=== PATIENT | female | born 1965 | race African-American/Black ===

== ENCOUNTER 2016-09-12 20:09 | Inpatient (IN) ==
[2016-09-12] MEDS ORDERED: SODIUM CHLORIDE 0.9% 1,000 ML IV STA (20:47)
[2016-09-12] MEDS ORDERED: ONDANSETRON 4 MG/2 ML VIAL IV STA (20:47)
[2016-09-12] MEDS ORDERED: HYDROmorphone 2 MG/1 ML VIAL IV STA (20:47)
[2016-09-12] MEDS ORDERED: HYDROmorphone 2 MG/1 ML VIAL ONE (21:12)
[2016-09-12] MEDS ORDERED: ONDANSETRON 4 MG/2 ML VIAL ONE (21:12)
[2016-09-12 21:37] LABS: Basophils % 0.2 % (0.0-0.8); Eosinophils # 0.1 10*3/uL (0.0-0.87); Eosinophils % 1.2 % (0.00-10.9); Hematocrit 34.6 VOL% (35.7-47.0); Hemoglobin 11.1 GM/DL (12.0-16.0); Immature Granulocytes % 0.4 %; Immature Granulocytes Absolute 0.03 #; Lymphocytes # 2.2 10*3/uL (1.4-4.0); Lymphocytes % 27.2 % (21.3-54.2); Mean Corpuscular HGB Conc 32.1 GM/DL (32-36); Mean Corpuscular Hemoglobin 28 PG (27-34); Mean Corpuscular Volume 86.9 FL (87-102); Mean Platelet Volume 11.6 FL (9.6-12.0); Monocytes # 0.6 10*3/uL (0.11-0.8); Neutrophils # 5.1 10*3/uL (1.4-7.4); Platelet Count 355 T/CUMM (130-400); Red Blood Count 3.98 MC/CUMM (3.8-5.5); Red Cell Distribution Width 12.7 % (9.3-17.3)
[2016-09-12 21:48] LABS: PT Patient Result 10.5 SECS
[2016-09-12 21:56] LABS: Alanine Aminotransferase 24 U/L (13-56); Albumin 2.9 G/DL (3.4-5.0); Alkaline Phosphatase 126 U/L (45-117); Aspartate Amino Transferase 29 U/L (0-37); Bilirubin,Total < 0.39 MG/DL (0.2-1.0); Blood Urea Nitrogen 20 MG/DL (7-18); Calcium 8.8 MG/DL (8.5-10.1); Glucose 276 MG/DL (74-106); Osmolality,Calculated 285.8 MOS/KG (273-304); Potassium 3.7 MMOL/L (3.5-5.1); Sodium 137 MMOL/L (136-145); Total Protein 7.1 G/DL (6.4-8.3)
--- NOTE | 2016-09-12 22:47 | Ultrasound Report ---
Exam: Right lower extremity venous Doppler/duplex ultrasound Comparison: None Clinical history: Right leg pain and swelling Technique: Duplex scan of the right lower extremity veins using th B- mode/grayscale imaging and Dopplers spectral analysis and color flow. Findings: There is normal compression and augmentation of the right common femoral, superficial femoral and popliteal veins. The proximal right greater saphenous veins appear to be patent. Major venous structures of the right lower extremity demonstrating normal course and caliber with normal color-flow study and spectral analysis. Enlarged right femoral nodes are noted with the largest node measuring 20 mm in length. 83 x 62 x 34 mm soft tissue abnormality in the medial mid to distal right thigh location. Impression: No evidence to suggest deep venous thrombosis within the right lower extremity. 83 x 62 x 34 mm soft tissue abnormality in the medial right thigh location which can be seen with hematoma, mass, etc. No blood flow within this finding. Additional enlarged right groin nodes. Follow-up recommended as discussed with Dr. Ghotra at 10:40 PM on 09/12/2016. Critical test results Ultrasound images were captured and stored. PROCEDURE INTERPRETED AT [facility] [place] DEPARTMENT OF RADIOLOGY Final Report Signed by: Dr. Camila Ibrahim
--- NOTE | 2016-09-12 23:50 | Emergency Department Note ---
Leanna Schultz Emily, am scribing for, and in the presence of, Mehreen Ghotra DO 20:57. IBrandin Catherine, DO, personally performed the services described in this documentation, ascribed by Ava Ram in my presence, and it is both accurate and complete 350 . Arrival - Arrival Chief Complaint: Extremity Problem ED Nursing Triage Note: C/O RLE pain/swelling. Onset 2 weeks ago, but worsening more on Wednesday. Pt was seen at [facility] and was sent for RLE ultrasound to rule out DVT. +significant swelling to right leg when compared to the right. +pedal pulses equal and strong. Mode of Arrival: Stretcher Limitations: No Limitations Source: Patient Time Seen by Provider: 09/12/16 20:24 - History of Present Illness HPI Narrative: Pt is a 51 y/o female who was transferred from [facility] for further evaluation of possible DVT to right leg. Pt notes having right inner thigh pain and swelling for 2 weeks, waxing and waning. Pt states she was seen and only given pain medication, but pain and swelling returned after a few days of no pain. She states Wednesday, September 01, 2016, she had cramp in inner thigh that had it checked immediately in ED due to it being constant. From there, she followed up with PCP and was given more pain medication and a Lantix pin. Pt is experiencing pain starting at inner thigh radiating to knee and then foot with swelling throughout. 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 Pt denies smoking, ETOH or drug use. PMHX of cholecystectomy, 1x , NIDDM, IDDM. Onset (ago): day(s) Consistency: constant Severity: mild, moderate Severity scale (1-10): 4 Quality: aching Date of Last Menstrual Period: Hysterectomy Allergies/Adverse Reactions: Allergies Allergy/AdvReac Type Severity Reaction Status Date / Time No Known Allergies Allergy Verified 09/12/16 20:25 Home Medications: Home Medications Medication Instructions Recorded Confirmed Type Insulin Glargine,Hum.rec.anlog 10 unit SUBCUT BEDTIME 09/12/16 09/12/16 History [Lantus SoloStar] Lisinopril [Zestril] 20 mg PO DAILY 09/12/16 09/12/16 History Review of System - Review of System 12 point system: reviewed and no additional remarkable complaints except as stated - Review of System Constitutional: Absent: fever, weakness Respiratory: Absent: respiratory distress Cardiovascular: Absent: chest pain, syncope Gastrointestinal: Absent: abdominal pain Musculoskeletal: Present: leg pain (right leg with swelling). Absent: arm pain , back pain, neck pain Skin: Absent: rash Neurological: Absent: headache Psychiatric: Absent: anxiety Medical,Surgical,& Family Hx - Medical History Cardio: History of: Hypertension - Surgical History Surgical History: noncontributory Abdominal Surgeries: Surgical HX of: Cholecystectomy Reproductive Surgeries: Surgical HX of;: Section (x1) - Family History Family History: noncontributory - Social History Smoking Status: Never smoker Frequency of Alcohol Use: None (never) Type of Drug Use: None (never) Marital Status: Single Lives With:: Alone Functional capacity: independent ambulation Exam Vital Signs: Vital Signs Temperature 98.4 F 09/12/16 20:09 Pulse Rate 69 09/12/16 22:21 Respiratory Rate 20 09/12/16 22:21 Blood Pressure 149/109 09/12/16 22:21 O2 Sat by Pulse Oximetry 100 09/12/16 22:21 - General General appearance: alert, in no apparent distress - Head Head exam: Present: atraumatic, normocephalic - Eye Eye exam: Present: PERRL, EOMI - ENT ENT exam: Present: mucous membranes moist. Absent: mucous membranes dry - Neck Neck exam: Present: full ROM. Absent: tenderness - Chest Chest inspection: Present: symmetric chest wall rise. Absent: tenderness - Respiratory Respiratory exam: Present: normal lung sounds bilaterally. Absent: respiratory distress - Cardiovascular Cardiovascular exam: Present: regular rate, normal rhythm, normal heart sounds - Abdominal Exam Abdominal exam: Present: soft, normal bowel sounds. Absent: distention, tenderness, guarding, rebound - Extremities Exam Extremities exam: Present: full ROM, tenderness (erythema throughout RLE starting at inner thigh, but entirety of rt leg has edema; distal pulse is good ; Que's sign positive), pedal edema (+1 pitting) - Back Exam Back exam: Present: normal inspection, full ROM - Neurological Exam Neurological exam: Present: alert, oriented X3, CN II-XII intact. Absent: motor sensory deficit - Psychiatric Psychiatric exam: Present: normal affect, normal mood - Skin Skin exam: Present: warm, dry Course Course Narrative: This is a 51-year-old female she was transferred from another facility for evaluation of pain in her right medial leg and foot. The patient reported this and her down because he thought she might have a blood clot. Ana Cristina reports to me no injury she did have a fall but that was back in February. She states that she has had progressive pain in the upper leg that radiates down into her foot and this is been ongoing for about the last 4 weeks. She did go to the ER up there about 2 weeks ago was placed on pain medicine and did see her regular doctor in follow-up. She stated that they are still treating her for a strain type injury. She reports her regular physician did switch her glucose medications to insulin. She can walk on the leg states it is painful. Her biggest complaint is that she's not sleeping well at night because she says the pain prevents her from resting. She's had no fever no chills or chest pain no abdominal pain no syncope no headaches. Physical assessment patient's awake alert vital signs are stable she's afebrile HEENT exam is normal neck is supple heart is regular rate and rhythm lungs are clear and the anterior posterior levi abdomen is rounded and soft without tenderness rebound or guarding or masses. Her extremities are intact 4 evaluation of the right leg she has tenderness to the right inner thigh region I was unable to palpate an actual mass. In comparison to the left leg the right leg in its entirety appears to be more swollen. She has about a +1 pitting edema to the lower leg distal pulses are good but she has pain with palpation along the leg. Treatment included lab work she is a little bit higher and a glucose of 276. I did do venous Doppler study of the leg which fails to show any blood clot however there was a large soft tissue either mass or hematoma in the right medial thigh region. I have visited with the patient will need to place her in the hospital at least overnight to obtain more imaging on this region. She is to grimace with this treatment. Hospitalist service has been contacted and they will be admitting the patient. - Consultations Consultation #1: Dr. Yeh will admit the patient Time: 23:49 Results - Labs CBC & BMP: 09/12/16 20:59 09/12/16 20:59 Lab Results: I have reviewed the patients labs Labs: Laboratory Tests 09/12/16 09/12/16 20:59 20:59 Hgb 11.1 L Hct 34.6 L MCV 86.9 L BUN 20 H Creatinine 1.60 H Glucose 276 H Alkaline Phosphatase 126 H Albumin 2.9 L Globulin 4.2 H Albumin/Globulin Ratio 0.6 L - Diagnostic Findings Procedure: Ultrasound: report reviewed by me (No evidence to suggest DVT within the right lower extremity. 83 x 62 x 34 mm soft tissue abnormality in the medial right thigh location which can be seen with hematoma, mass, etc. No blood flow within this finding. Additional enlarged right groin nodes. Follow up recommended as discussed with Dr. Ghotra at 10:40 pm on 2016.) Disposition Clinical Impression: soft tissue mass right lower extremity, Hyperglycemia due to type 1 diabetes mellitus Case discussed with: patient Disposition: Still a Patient Condition: Stable Time of Disposition: 23:50
[2016-09-13 02:03] LABS: Apearance,Urine CLEAR (Clear); Bilirubin,Urine Negative (Negative); Blood, Urine Negative (Negative); Glucose,Urine (UA) >=500 mg/dL (Negative); Hyaline Casts,Urine 1 /LPF (0-3); Ketones,Urine Negative (Negative); Nitrite,Urine Negative (Negative); Protein,Urine 30 MG/DL; RBC,Urine <1 /HPF (0-4); Squamous Epithelial Cell,Urine Occasional /HPF (0-10); Urine Color Yellow (Yellow); Urine Specific Gravity 1.018 (1.001-1.035); Urine Urobilinogen < 2.0 EU/DL (0.2-1.0); WBC,Urine 1 /HPF (0-6)
[2016-09-13] MEDS ORDERED: ZALEPLON 5 MG CAPSULE PO PRN (03:47)
[2016-09-13] MEDS ORDERED: DEXTROSE 50% 25 GM/50 ML VIAL IV PRN (03:47)
[2016-09-13] MEDS ORDERED: GLUCAGON 1 MG VIAL IM PRN (03:47)
--- NOTE | 2016-09-13 04:05 | Hospitalist History & Physical ---
Assessment and Plan (1) Cellulitis of right lower extremity Status: Acute Assessment and plan: Patient with the right lower extremities edema although has no fever or leukocytosis she has tenderness all lower extremities I will start with a treating with the antibiotics. If she is not improving with this and has persistent swelling and symptoms may need further evaluation probably with the abdominal CT to make sure there is no venous occlusion at a higher level. Patient has mild renal insufficiency and got contrast tonight . I will avoid another dose of contrast tonight. Will also start on pain medications Current Visit: Yes (2) Diabetes mellitus Status: Acute Assessment and plan: Diabetic diet and monitor blood sugar with the as needed insulin. I will start her I will start on her home dose of Lantus insulin. Current Visit: Yes (3) Anemia Status: Acute Assessment and plan: I will follow-up with a repeat lab Current Visit: Yes (4) Abnormal renal function Status: Acute Assessment and plan: No old labs to compare with I will start her IV fluid and repeat labs ordered Current Visit: Yes History of Present Illness Chief complaint: right lower extremity pain History of present illness: Ms. Joshi is a 51 year old female with history of hypertension and diabetes mellitus presented from [facility] for further eval evaluation of right lower extremities swelling and pain. According to patient she had this swelling in her right lower extremities for about 2 weeks. With the pain. It started in the upper medial thigh not to extend all the way to the leg she was seen by the her provider in the clinic and give some analgesic which did not relieve the pain it progressively worsened she was seen at the [facility] for that today and transferred here for evaluation for possible DVT. Patient has no history of fall or trauma recently no history of fever. In the ER she had venous Dopplers which were negative for the DVT but suspected possible mass versus hematoma in the thigh. She underwent CT angiography of the lateral right lower extremities and noted no evidence of vascular disease or vascular occlusion. There was diffuse right thigh calf and distal right lower extremities soft tissue swelling edema and subcutaneous fat fat stranding suggestive of cellulitis. I was consulted for admission patient to hospitalist service Home Medications Medication Instructions Recorded Confirmed Type Insulin Glargine,Hum.rec.anlog 10 unit SUBCUT BEDTIME 09/12/16 09/12/16 History [Lantus SoloStar] Lisinopril [Zestril] 20 mg PO DAILY 09/12/16 09/12/16 History Allergies Allergy/AdvReac Type Severity Reaction Status Date / Time No Known Allergies Allergy Verified 09/12/16 20:25 Medical,Surgical,& Family Hx - Medical History Cardio: History of: Hypertension Endocrine: History of: Diabetes Mellitus (NIDDM) - Surgical History Abdominal Surgeries: Surgical HX of: Cholecystectomy Reproductive Surgeries: Surgical HX of;: Section (x1) - Social History Smoking Status: Never smoker Frequency of Alcohol Use: None (never) Type of Drug Use: None (never) - Constitutional Constitutional: Absent: chills, fever(s) - Respiratory Respiratory: Absent: cough, dyspnea, wheezing - Gastrointestinal Gastrointestinal: Absent: constipation, diarrhea, nausea, vomiting - Genitourinary Genitourinary: Present: urinary frequency. Absent: dysuria, flank pain - Musculoskeletal Musculoskeletal: Present: as per HPI - Neurological Neurological: Absent: confusion, convulsions, dizziness, headache(s), syncope, tremor(s) Exam - Constitutional Vitals: Period Temp Pulse Resp BP Sys/Oropeza Pulse Ox Last 24 Hr 98.4 F-98.4 F 69-76 16-20 148-155/90-109 98-100 General appearance: mild distress (Due to pain in lower extremity) - Head Head exam: Present: normal inspection, normocephalic, atraumatic - Eye Eye exam: Present: EOMI Pupils: Present: ANAYELI, normal accommodation - ENT ENT exam: Present: normal exam, normal oropharynx - Respiratory Respiratory exam: Present: clear to auscultation bilaterally (Equal air entry bilaterally). Absent: accessory muscle use, rales, rhonchi - Cardiovascular Cardiovascular exam: Present: regular rate and rhythm. Absent: tachycardia - GI/Abdominal GI/Abdominal exam: Present: normal bowel sounds, soft. Absent: distended, tenderness - Neurological Exam Neurological exam: Present: alert, oriented X3 Results - Labs CBC & BMP: 09/12/16 20:59 09/12/16 20:59 Lab Results: I have reviewed the past 24 hour labs
[2016-09-13] MEDS: SODIUM CHLORIDE 0.9% 1,000 ML IV SCH ×3 (05:19→23:51)
[2016-09-13 07:36] LABS: Basophils % 0.1 % (0.0-0.8); Eosinophils % 0.4 % (0.00-10.9); Hematocrit 32.4 VOL% (35.7-47.0); Hemoglobin 10.1 GM/DL (12.0-16.0); Immature Granulocytes % 0.6 %; Immature Granulocytes Absolute 0.04 #; Lymphocytes # 1.2 10*3/uL (1.4-4.0); Lymphocytes % 17.7 % (21.3-54.2); Mean Corpuscular HGB Conc 31.2 GM/DL (32-36); Mean Corpuscular Hemoglobin 27 PG (27-34); Mean Platelet Volume 11.6 FL (9.6-12.0); Monocytes # 0.6 10*3/uL (0.11-0.8); Monocytes % 8.3 % (1.7-12.7); Neutrophils # 5.1 10*3/uL (1.4-7.4); Neutrophils % 72.9 % (38.7-73.9); Platelet Count 312 T/CUMM (130-400); Red Blood Count 3.68 MC/CUMM (3.8-5.5); Red Cell Distribution Width 12.8 % (9.3-17.3)
[2016-09-13 08:02] LABS: Albumin 2.4 G/DL (3.4-5.0); Bilirubin,Total 0.5 MG/DL (0.2-1.0); Calcium 8.3 MG/DL (8.5-10.1); Osmolality,Calculated 286.7 MOS/KG (273-304); Potassium 4.4 MMOL/L (3.5-5.1); Total Protein 6.1 G/DL (6.4-8.3)
--- NOTE | 2016-09-13 10:25 | CT Report ---
CT right femur with contrast DLP: 594.2 mGy*cm Technique: Axial CT images of the right leg were obtained during the arterial of contrast injection. Coronal and sagittal 2-D reconstructions were obtained. No 3-D reconstructions were obtained. This exam was not ordered as CTA as initially reported by [facility]. Omnipaque 350, 100 cc. Comparison: Venous ultrasound 09/12/2016 Findings: Recent ultrasound demonstrated a 83 x 62 x 34 mm soft tissue abnormality in the medial mid to distal right thigh location. This finding cannot be from the medial musculature in the right thigh location especially the vastus medialis muscle. The finding does not appear to be hyperdense relationship to the adjacent musculature. There is blood flow noted in this location. Diffuse soft tissue fluid and soft tissue stranding noted. Enlarged right femoral nodes with the largest measuring 20 mm in length. Arterial calcifications are noted with no hemodynamically significant stenosis. 3 vessel runoff noted to the foot. Degenerative changes are noted with no fracture or bone destruction. Benign linear ossific finding extending from the right iliac bone. Limited evaluation of the pelvis with postoperative findings an apparent hysterectomy. Multiloculated fluid collections are noted which involves approximately 97 x 86 mm area. Impression: No hemodynamically arterial stenosis. Fluid and soft tissue stranding in the right leg which can be seen with edema/cellulitis. Poorly defined abnormality in the medial right thigh which is felt to correspond to the 83 x 62 x 34 mm abnormality noted on ultrasound. This finding cannot be from the musculature and may represent a mass or hematoma with lymphadenopathy. Follow-up is recommended. Apparent hysterectomy with incomplete evaluation of multiloculated fluid collections in the pelvis. CT of the abdomen and pelvis and/or pelvic ultrasound may be helpful for further evaluation of these findings. PROCEDURE INTERPRETED AT [facility] DEPARTMENT OF RADIOLOGY Final Report Signed by: Dr. Camila Ibrahim
[2016-09-13] MEDS: PANTOPRAZOLE 40 MG TABLET PO SCH (10:43)
[2016-09-13] MEDS: ENOXAPARIN 40 MG/0.4 ML SYRINGE SUBCUT SCH (10:43)
[2016-09-13] MEDS: INSULIN LISPRO 100 UNIT/ML SUBCUT SCH ×4 (10:44→21:06)
[2016-09-13] MEDS: INSULIN GLARGINE 100 UNIT/ML SUBCUT SCH (10:44)
[2016-09-13] MEDS: PIPERACILLIN/TAZOBACTAM 3,375 MG in SODIUM CHLORIDE 0.9% 100 ML IV SCH ×2 (13:28→13:29)
[2016-09-13] MEDS: CEFTAROLINE 600 MG in SODIUM CHLORIDE 0.9% 100 ML IV SCH (16:47)
[2016-09-14] MEDS: CEFTAROLINE 600 MG in SODIUM CHLORIDE 0.9% 100 ML IV SCH ×2 (05:35→21:17)
[2016-09-14 07:06] LABS: Basophils % 0.3 % (0.0-0.8); Eosinophils # 0.1 10*3/uL (0.0-0.87); Hematocrit 31.5 VOL% (35.7-47.0); Hemoglobin 9.8 GM/DL (12.0-16.0); Immature Granulocytes % 0.4 %; Immature Granulocytes Absolute 0.03 #; Lymphocytes # 1.5 10*3/uL (1.4-4.0); Lymphocytes % 20.3 % (21.3-54.2); Mean Corpuscular HGB Conc 31.1 GM/DL (32-36); Mean Corpuscular Hemoglobin 28 PG (27-34); Mean Corpuscular Volume 89.5 FL (87-102); Mean Platelet Volume 11.5 FL (9.6-12.0); Monocytes # 0.8 10*3/uL (0.11-0.8); Monocytes % 10.8 % (1.7-12.7); Neutrophils # 4.9 10*3/uL (1.4-7.4); Neutrophils % 67.2 % (38.7-73.9); Platelet Count 318 T/CUMM (130-400); Red Blood Count 3.52 MC/CUMM (3.8-5.5); Red Cell Distribution Width 13.1 % (9.3-17.3); White Blood Count 7.3 T/CUMM (4-12)
[2016-09-14 07:39] LABS: Calcium 8.6 MG/DL (8.5-10.1); Magnesium 2.4 MG/DL (1.8-2.4); Osmolality,Calculated 286.5 MOS/KG (273-304); Potassium 4.3 MMOL/L (3.5-5.1)
[2016-09-14] MEDS: MORPHINE 2 MG/1 ML SYRINGE IV PRN ×2 (07:49→15:03)
[2016-09-14] MEDS: ENOXAPARIN 40 MG/0.4 ML SYRINGE SUBCUT SCH (08:49)
[2016-09-14] MEDS: PANTOPRAZOLE 40 MG TABLET PO SCH (08:49)
[2016-09-14] MEDS: INSULIN GLARGINE 100 UNIT/ML SUBCUT SCH (08:49)
[2016-09-14] MEDS: INSULIN LISPRO 100 UNIT/ML SUBCUT SCH ×4 (08:59→21:40)
[2016-09-14] MEDS ORDERED: VANCOMYCIN INJ 1,000 MG in SODIUM CHLORIDE 0.9% 250 ML IV SCH (11:00)
[2016-09-14] MEDS ORDERED: hydroCHLOROthiazide 12.5 MG CAPSULE PO SCH (12:00)
[2016-09-14] MEDS: SODIUM CHLORIDE 0.9% 1,000 ML IV SCH (13:36)
--- NOTE | 2016-09-14 14:31 | Hospitalist Progress Note ---
Assessment and Plan (1) NARINDER (acute kidney injury) Status: Acute Current Visit: Yes (2) Edema Status: Acute Current Visit: Yes (3) Diabetes mellitus Status: Acute Current Visit: Yes (4) Anemia Status: Acute Current Visit: Yes Hospitalist: Subjective Interval history: No acute events overnight. Blood pressure is elevated, reports that she takes lisinopril at home. Given NARINDER will start hctz instead. FSGs also elevated, increasing Lantus. CT femur with hematoma vs mass in right lower extremity. Will consult surgery for assistance. Patient and daughter report that her leg has been bothering her since last November. Patient also with blood cultures growing both gram positive cocci and gram negative rods. Possible contamination. Continue teflaro. Repeat blood cultures. Exam - Constitutional Vitals: Period Temp Pulse Resp BP Sys/Oropeza Pulse Ox Last 24 Hr 98.5 F-98.8 F 83-90 18-20 156-179/87-107 95-99 General appearance: normal weight - Head Head exam: Present: normocephalic, atraumatic - Eye Eye exam: Present: EOMI Pupils: Present: ANAYELI - ENT ENT exam: Present: normal exam - Neck Neck exam: Present: normal inspection - Respiratory Respiratory exam: Present: clear to auscultation bilaterally. Absent: rhonchi, wheezes - Cardiovascular Cardiovascular exam: Present: regular rate and rhythm - GI/Abdominal GI/Abdominal exam: Present: normal bowel sounds, soft. Absent: tenderness, rebound - Extremities Exam Extremities exam: Present: edema - Back Exam Back exam: Present: normal inspection - Neurological Exam Neurological exam: Present: alert, oriented X3 - Psychiatric Psychiatric exam: Present: normal affect, normal mood - Skin Skin exam: Present: warm, intact Results - Labs CBC & BMP: 09/14/16 06:35 09/14/16 06:35
--- NOTE | 2016-09-14 17:17 | General Surgery Consult Note ---
Assessment and Plan (1) Thigh pain, musculoskeletal Status: Acute Assessment and plan: Right thigh pain. Without evidence of vascular compromise on CT of the right femur with contrast with no hemodynamically significant arterial stenosis. No venous occlusion was identified. At this point the etiology is unclear. We will check creatinine kinase level, lactic acid level, sedimentation rate and CRP. Dr. Dior houston follow with additional assessment and recommendation. Current Visit: Yes Qualifiers: Laterality: right Qualified Code(s): M79.604 - Pain in right leg History of Present Illness Chief complaint: Right thigh pain History of present illness: Ms. Joshi is a 51 year old female with past medical history of hypertension and diabetes mellitus I transferred to [facility] for right thigh pain. She has not been experiencing progressive pain over the past 2 weeks which she describes in the right medial thigh. It there was no precipitating event including trauma or increased activity, she states that she simply felt her muscles get "tight" with continued progression. She has been treated with outpatient and in the emergency facilities for this pain with analgesics which have been minimally effective. She localizes the pain in the medial thigh compartment with associated edema. She has progressively had severe, throbbing pain which has worsened now also such that she is unable to flex and extend the knee or weight-bear which is been an issue for 3-4 days. She paresthesias, numbness, hyperesthesias, fever, chills, other arthralgias or night sweats. No new medications. No recent travel. No relieving symptoms. Home Medications Medication Instructions Recorded Confirmed Type Insulin Glargine,Hum.rec.anlog 10 unit SUBCUT BEDTIME 09/12/16 09/13/16 History [Lantus SoloStar] Lisinopril [Zestril] 20 mg PO DAILY 09/12/16 09/13/16 History Allergies Allergy/AdvReac Type Severity Reaction Status Date / Time Penicillins Allergy Intermediate ITCHING Verified 09/13/16 05:11 Medical,Surgical,& Family Hx - Medical History Cardio: History of: Hypertension Endocrine: History of: Diabetes Mellitus (NIDDM) - Surgical History Abdominal Surgeries: Surgical HX of: Cholecystectomy Reproductive Surgeries: Surgical HX of;: Section (x1) - Social History Smoking Status: Never smoker Frequency of Alcohol Use: None Type of Drug Use: None - Constitutional Constitutional: Absent: anorexia, fatigue, fever(s), malaise, night sweats - Cardiovascular Cardiovascular: Absent: chest pain at rest, chest pain with activity, orthopnea , palpitations - Respiratory Respiratory: Absent: cough, dyspnea on exertion, wheezing - Gastrointestinal Gastrointestinal: Absent: abdominal pain, diarrhea, nausea, vomiting - Genitourinary Genitourinary: Absent: dysuria, hematuria - Musculoskeletal Musculoskeletal: Present: as per HPI - Neurological Neurological: Absent: numbness, paresthesias Hematologic/Lymphatic: Present: other. Absent: easy bruising Exam - Constitutional Vitals: Period Temp Pulse Resp BP Sys/Oropeza Pulse Ox Last 24 Hr 98.5 F-98.7 F 83-90 18-20 162-179/87-107 95-99 General appearance: mild distress, over weight - Head Head exam: Present: normocephalic, atraumatic - Eye Eye exam: Absent: conjunctival injection, scleral icterus - Respiratory Respiratory exam: Present: clear to auscultation bilaterally - Cardiovascular Cardiovascular exam: Present: RRR - GI/Abdominal GI/Abdominal exam: Present: normal bowel sounds, soft. Absent: distended, tenderness - Extremities Exam Extremities exam: Present: other (Right thigh is edematous more localized medially with slight firmness to the medial side with pain out of proportion to range of motion of the hip and/or knee as well as to light touch sensory. Patient is very guarded and difficult to examine from a range of motion standpoint. She can engage her rectus for You it appears, but she has minimal active range of motion including cigarettes significant pain out of proportion with hip abduction, or any flexion and extension of the hip and/or knee. Passively she will not allow me to manipulate this extremity. Distally, sensation is intact in the foot and ankle with motor function intact with dorsiflexion and plantar flexion of the toes and ankle complete and sensory function intact in foot and ankle.). Absent: calf tenderness, edema - Neurological Exam Neurological exam: Present: alert, oriented X3 - Skin Skin exam: Present: normal color, warm Results - Labs CBC & BMP: 09/14/16 06:35 09/14/16 06:35 - Impressions CT scan of the right femur with contrast reviewed: There is a medial lesion approximately 9 x 8 mm of the vastus medialis musculature without ring enhancement. Tendinopathy of the groin ipsilateral region is also noted. Subcu edema. - Diagnostic Findings Procedure: Ultrasound: report reviewed by me, image reviewed by me (Negative duplex Doppler of the right lower extremity for a blood clot. Lymphadenopathy as well as a focal lesion of the medial side of the vastus medialis Shoemaker was noted approximately 8 x 6 x 3 mm.)
--- NOTE | 2016-09-14 19:01 | General Surgery Consult Note ---
Assessment and Plan - Time spent with patient Time spent with patient: Less than 30 minutes (1) Thigh pain, musculoskeletal Status: Acute Assessment and plan: Impression: 1. Right thigh pain and swelling etiology unclear 2. Questionable mass in the muscle on the medial thigh etiology unclear 3. Diabetic adult onset Plan: 1. We will get orthopedics to look at this and review for him to see what they think might be going on. 2. Will get an MRI to see if we get a little better definition of what might be going on the muscular to her. 3. Symptomatic treatment is best that we can do at this time. Current Visit: Yes Qualifiers: Laterality: right Qualified Code(s): M79.604 - Pain in right leg History of Present Illness Chief complaint: Right thigh pain for 3 weeks History of present illness: Ms. Joshi is a 51 year old female -Malaysian who over the last 3 weeks has developed some increasing right thigh pain and she describes some swelling. Etiology of this is unclear. She has a daughter who is apparently a physician in [place] but when she was seen in [place] will do a transferred down here. It is unclear what this process might be but she is extremely tender and having difficulty in functioning due to this discomfort. She apparently had a venous Doppler study that was normal and she had a CT scan of the thigh that again is suggestive of a mass although is difficult for me to really see it and the vasculature is normal. At this point I do not see anything from a general surgical standpoint that there is anything I can do to this area. I cannot say that this area is an abscess cannot even say it is a hematoma. He may have to be concerned about neoplastic process. Will bring in orthopedics for their opinion and look at an MRI to see if we get a better look at what this area might be. Home Medications Medication Instructions Recorded Confirmed Type Insulin Glargine,Hum.rec.anlog 10 unit SUBCUT BEDTIME 09/12/16 09/13/16 History [Lantus SoloStar] Lisinopril [Zestril] 20 mg PO DAILY 09/12/16 09/13/16 History Allergies Allergy/AdvReac Type Severity Reaction Status Date / Time Penicillins Allergy Intermediate ITCHING Verified 09/13/16 05:11 Medical,Surgical,& Family Hx - Medical History Cardio: History of: Hypertension Endocrine: History of: Diabetes Mellitus (NIDDM) - Surgical History Abdominal Surgeries: Surgical HX of: Cholecystectomy Reproductive Surgeries: Surgical HX of;: Section (x1) - Social History Smoking Status: Never smoker Frequency of Alcohol Use: None Type of Drug Use: None 12 point system: reviewed and no additional remarkable complaints except as stated Exam - Constitutional Vitals: Period Temp Pulse Resp BP Sys/Oropeza Pulse Ox Last 24 Hr 98.5 F-98.7 F 83-90 18-20 162-179/87-107 95-99 General appearance: mild distress - Head Head exam: Present: normal inspection - ENT ENT exam: Present: normal exam - Neck Neck exam: Present: normal inspection - Respiratory Respiratory exam: Present: clear to auscultation bilaterally, rales - Cardiovascular Cardiovascular exam: Present: RRR - GI/Abdominal GI/Abdominal exam: Present: normal bowel sounds, soft, other (Hysterectomy scar midline). Absent: hernia, mass, tenderness - Extremities Exam Extremities exam: Present: other (The right lower extremity she is not moving voluntarily at this time. External examination suggest that they thigh is a little bit larger on the right than the left and on palpation she is extremely tender on palpation of the right thigh and there is a fullness there in the medial aspect. Pulses are 3+ dorsalis pedis at this time and there is no lower extremity swelling that I see.) - Back Exam Back exam: Present: normal inspection - Neurological Exam Neurological exam: Present: alert, oriented X3, CN II-XII intact - Skin Skin exam: Present: normal color, warm, dry Results - Labs CBC & BMP: 09/14/16 06:35 09/14/16 06:35 Lab Results: I have reviewed the past 24 hour labs - Diagnostic Findings Procedure: CT: report reviewed by me (Right thigh showing vasculature are normal questionable mass medial thigh), Ultrasound: report reviewed by me ( Venous Dopplers normal)
--- NOTE | 2016-09-14 20:14 | ECHO Report ---
Varsha Joshi Exam Date: 09/14/2016 11:26 Referring Physician: Technologist: Leigha Stack Age: 51 Ht (in): 65 Wt (lb): 222 Gender: F Exam Location: [facility], [place] Echo Indications: hyperglycemia, diabetes, anemia, abn. renal function BP: 162 / 99 HR: 83 Rhythm: Atrial fibrillation Technical Quality: Good IMPRESSIONS 1. Left ventricle is normal size with moderate concentric left ventricular hypertrophy and global hypokinesis with an ejection fraction about 40%. 2. Left atrium is mildly dilated. 3. Right atrium and ventricle are normal size. 4. Aortic valve is mildly sclerotic with trace insufficiency but no stenosis. 5. Aortic valve slightly thickened and sclerotic with mild regurgitation. 6. Mild tricuspid regurgitation. 7. Probably normal right-sided pressures. MEASUREMENTS (Male / Female) Normal Values 2D ECHO LV Diastolic Diameter PLAX 5.2 cm 4.2 - 5.9 / 3.9 - 5.3 cm LV Systolic Diameter PLAX 4.5 cm LV Fractional Shortening PLAX 12.7 % IVS Diastolic Thickness 1.5 cm 0.6 - 1.0 / 0.6 - 0.9 cm LVPW Diastolic Thickness 1.2 cm 0.6 - 1.0 / 0.6 - 0.9 cm RV Internal Dim ED PLAX 2.4 cm Aortic Root Diameter 2.5 cm LA Systolic Diameter LX 4.0 cm 3.0 - 4.0 / 2.7 - 3.8 cm DOPPLER TR Peak Velocity 273.0 cm/s TR Peak Gradient 29.8 mmHg FINDINGS Left Ventricle Left ventricle is normal size with moderate concentric left ventricular hypertrophy and global hypokinesis and ejection fraction of approximately 40%. Right Ventricle Normal right ventricular size. Right Atrium Normal right atrial size. Left Atrium The left atrium is mildly enlarged. Mitral Valve Mild mitral valve thickening and sclerosis. Mild mitral valve regurgitation. Aortic Valve Aortic valves are grossly a tricuspid structure with normal motion and minimal sclerosing. There is trace insufficiency but no stenosis. Tricuspid Valve Morphologically normal tricuspid valve. Mild tricuspid valve regurgitation. Tricuspid regurgitation velocities suggest a PAP of 35- 40 mmHg. Pulmonic Valve Morphologically normal pulmonic valve. Trace pulmonary valve regurgitation. Pericardium No pericardial effusion. Aorta Normal size aortic root and proximal ascending aorta. Jamin Dash MD (Electronically Signed) Final Date: 14 September 2016 20:13
[2016-09-15] MEDS: MORPHINE 2 MG/1 ML SYRINGE IV PRN ×3 (02:29→23:54)
[2016-09-15 06:09] LABS: Basophils % 0.4 % (0.0-0.8); Eosinophils % 0.5 % (0.00-10.9); Hematocrit 31.9 VOL% (35.7-47.0); Hemoglobin 10.1 GM/DL (12.0-16.0); Immature Granulocytes % 0.3 %; Immature Granulocytes Absolute 0.02 #; Lymphocytes # 1.5 10*3/uL (1.4-4.0); Lymphocytes % 19.8 % (21.3-54.2); Mean Corpuscular HGB Conc 31.7 GM/DL (32-36); Mean Corpuscular Hemoglobin 28 PG (27-34); Mean Corpuscular Volume 87.9 FL (87-102); Mean Platelet Volume 11.8 FL (9.6-12.0); Monocytes # 0.9 10*3/uL (0.11-0.8); Monocytes % 11.6 % (1.7-12.7); Neutrophils # 5.1 10*3/uL (1.4-7.4); Neutrophils % 67.4 % (38.7-73.9); Platelet Count 334 T/CUMM (130-400); Red Blood Count 3.63 MC/CUMM (3.8-5.5); Red Cell Distribution Width 13.2 % (9.3-17.3); White Blood Count 7.6 T/CUMM (4-12)
[2016-09-15] MEDS: LACTULOSE 20 GM/30 ML UDCUP PO PRN ×2 (06:20→06:21)
[2016-09-15] MEDS: hydroCHLOROthiazide 12.5 MG CAPSULE PO SCH ×2 (06:20→08:40)
[2016-09-15] MEDS: amLODIPine 5 MG TABLET PO SCH ×2 (06:20→08:40)
[2016-09-15] MEDS ORDERED: amLODIPine 5 MG TABLET PO ONE (06:30)
[2016-09-15 06:51] LABS: % Iron Saturation 12.2 % (18-50); Calcium 8.4 MG/DL (8.5-10.1); Ferritin 206.5 ng/ml (8-252); Magnesium 2.2 MG/DL (1.8-2.4); Osmolality,Calculated 281.5 MOS/KG (273-304); Potassium 3.9 MMOL/L (3.5-5.1)
[2016-09-15] MEDS: CARVEDILOL 3.125 MG TABLET PO SCH ×2 (08:39→16:07)
[2016-09-15] MEDS: PANTOPRAZOLE 40 MG TABLET PO SCH (08:39)
[2016-09-15] MEDS: ENOXAPARIN 40 MG/0.4 ML SYRINGE SUBCUT SCH (08:39)
[2016-09-15] MEDS: CEFTAROLINE 600 MG in SODIUM CHLORIDE 0.9% 100 ML IV SCH (08:40)
[2016-09-15] MEDS ORDERED: INSULIN GLARGINE 100 UNIT/ML SUBCUT SCH ×2 (09:00→15:33)
[2016-09-15] MEDS: INSULIN LISPRO 100 UNIT/ML SUBCUT SCH ×4 (10:23→23:52)
--- NOTE | 2016-09-15 10:52 | General Surgery Progress Note ---
Assessment and Plan - Time spent with patient Time spent with patient: Less than 30 minutes (1) Thigh pain, musculoskeletal Status: Acute Assessment and plan: 09/05/16 Right thigh pain with swelling and possible mass. Differentials include hematoma, deep infection, or malignancy. We're awaiting MRI to better delineate the deep tissues and determine if in fact there is a mass here; also awaiting orthopedic consult. Certainly there may be a need for surgical biopsy vs. evacuation if there is hematoma or abscess. Current Visit: Yes Qualifiers: Laterality: right Qualified Code(s): M79.604 - Pain in right leg Subjective Patient reports: Present: still having pain, tolerating a regular diet, other ( She says her pain is constant, has not improved, and she wants to "stay here until somebody can tell me how to get this better.") Exam - Constitutional Vitals: Period Temp Pulse Resp BP Sys/Oropeza Pulse Ox Last 24 Hr 98 F-99.7 F 87-96 18-20 166-201/91-109 96-98 General appearance: mild distress, other (She's sitting up in bed, holding onto her right thigh; she cries when we're talking.) - Respiratory Respiratory exam: Absent: rales, rhonchi - Cardiovascular Cardiovascular exam: Present: RRR - GI/Abdominal GI/Abdominal exam: Present: soft. Absent: tenderness - Extremities Exam Extremities exam: Present: other (Edema of RLE; fullness with subtle mass effect of right thigh medially. ) - Neurological Exam Neurological exam: Present: alert, oriented X3 Results - Labs CBC & BMP: 09/15/16 05:05 09/15/16 05:05 Lab Results: I have reviewed the past 24 hour labs (Labs noted; no major abnormalities. CT reviewed with Dr Carias-suggestion of subtle medial right thigh mass but it is difficult to determine with certainty)
[2016-09-15] MEDS ORDERED: hydrALAZINE 20 MG/1 ML VIAL IV PRN (13:12)
--- NOTE | 2016-09-15 14:16 | Magnetic Resonance Report ---
MR thigh RT wo/w con Indication: Severe right thigh pain. Possible injury secondary to fall. Comparison: CTA of the right lower extremity September 13, 2016. Technique: Using a 1.5 Thelma magnet, multisequence multiplanar MR imaging of the right thigh was performed prior to and following administration of intravenous contrast. Findings: Corresponding to the heterogeneous hypoechoic solid-appearing mass on recent ultrasound and the area of expansion involving the medial vastus on recent CTA, there is a T2 hyperintense expansile lesion of the vastus medialis which is best visualized on coronal STIR sequence and axial T2 fat sat sequence. This measures 9.4 cm in craniocaudal dimension, 4.2 cm in transverse dimension, and 5.2 cm in AP dimension. On T1 axial sequence, this has intermediate signal slightly increased compared to that of the adjacent muscle. This extends to the cortical surface of the mid femoral diaphysis but does not appear to invade the cortex. In addition, there appears to be a moderate degree of reticular fluid signal within the subcutaneous layer of the medial as well as lateral leg that could reflect sequelae of fall and injury. The vastus intermedius appears intact. Vastus lateralis demonstrates no specific evidence of pathology. If above described mass lies anterior to the femoral artery and femoral vein. Following administration of intravenous contrast, heterogeneous pattern of attenuation and enhancement is noted. Impression: 1. Expansile T2 hyperintense lesion with somewhat heterogeneous pattern of enhancement has no clear-cut involvement of the adjacent femoral cortex or femur and appears to lie slightly anterior to the vascular bundle within the vastus medialis muscle. Primary differential consideration includes pleomorphic undifferentiated sarcoma (malignant fibrous histiocytoma), other sarcoma, and soft tissue metastasis. 2. No adenopathy is present in the region of the right inguinal canal. 3. Small amount surrounding hemorrhage from recent fall is not excluded. 09/15/2016 1:46 PM PROCEDURE INTERPRETED AT [facility] DEPARTMENT OF RADIOLOGY Final Report Signed by: Dr. Vinh Thomas
[2016-09-15] MEDS ORDERED: MAGNESIUM HYDROXIDE SUSP 30 ML UDCUP PO PRN (15:31)
--- NOTE | 2016-09-15 15:31 | Hospitalist Progress Note ---
Assessment and Plan (1) NARINDER (acute kidney injury) Status: Acute Current Visit: Yes (2) Edema Status: Acute Current Visit: Yes (3) Diabetes mellitus Status: Chronic Current Visit: Yes (4) Anemia Status: Acute Current Visit: Yes Hospitalist: Subjective Interval history: No acute events overnight. Evaluated by surgery yesterday. Ordered MRI. Consulted orthopedics. Creatinine is elevated but stable. Echo with EF 40%. Blood pressure elevated. Add coreg, will uptitrate as appropriate. Complaining of constipation. Exam - Constitutional Vitals: Period Temp Pulse Resp BP Sys/Oropeza Pulse Ox Last 24 Hr 98 F-99.7 F 87-98 18-20 168-201/91-109 97-98 General appearance: normal weight - Head Head exam: Present: normocephalic, atraumatic - Eye Eye exam: Present: EOMI Pupils: Present: ANAYELI - ENT ENT exam: Present: normal exam - Neck Neck exam: Present: normal inspection - Respiratory Respiratory exam: Present: clear to auscultation bilaterally. Absent: rhonchi, wheezes - Cardiovascular Cardiovascular exam: Present: regular rate and rhythm - GI/Abdominal GI/Abdominal exam: Present: normal bowel sounds, soft. Absent: tenderness, rebound - Extremities Exam Extremities exam: Present: edema - Back Exam Back exam: Present: normal inspection - Neurological Exam Neurological exam: Present: alert, oriented X3 - Psychiatric Psychiatric exam: Present: normal affect, normal mood - Skin Skin exam: Present: warm, intact Results - Labs CBC & BMP: 09/15/16 05:05 09/15/16 05:05
[2016-09-15] MEDS: CEFTAROLINE 400 MG in SODIUM CHLORIDE 0.9% 100 ML IV SCH (21:14)
[2016-09-16 06:09] LABS: Basophils % 0.2 % (0.0-0.8); Eosinophils # 0.1 10*3/uL (0.0-0.87); Eosinophils % 0.9 % (0.00-10.9); Hematocrit 31.2 VOL% (35.7-47.0); Immature Granulocytes % 0.5 %; Immature Granulocytes Absolute 0.04 #; Lymphocytes # 1.2 10*3/uL (1.4-4.0); Lymphocytes % 14.2 % (21.3-54.2); Mean Corpuscular HGB Conc 32.1 GM/DL (32-36); Mean Corpuscular Hemoglobin 28 PG (27-34); Mean Corpuscular Volume 87.6 FL (87-102); Mean Platelet Volume 11.6 FL (9.6-12.0); Monocytes # 1.2 10*3/uL (0.11-0.8); Monocytes % 13.6 % (1.7-12.7); Neutrophils % 70.6 % (38.7-73.9); Platelet Count 308 T/CUMM (130-400); Red Blood Count 3.56 MC/CUMM (3.8-5.5); Red Cell Distribution Width 12.9 % (9.3-17.3); White Blood Count 8.5 T/CUMM (4-12)
[2016-09-16 06:37] LABS: Calcium 8.6 MG/DL (8.5-10.1); Magnesium 2.1 MG/DL (1.8-2.4); Osmolality,Calculated 282.7 MOS/KG (273-304)
--- NOTE | 2016-09-16 09:03 | General Surgery Progress Note ---
Assessment and Plan - Time spent with patient Time spent with patient: Less than 30 minutes (1) Thigh pain, musculoskeletal Status: Acute Assessment and plan: Impression: 1. Right thigh pain and swelling etiology unclear 2. Questionable mass in the muscle on the medial thigh etiology unclear 3. Diabetic adult onset Plan: 1. We will get orthopedics to look at this and review for him to see what they think might be going on. 2. Will get an MRI to see if we get a little better definition of what might be going on the muscular to her. 3. Symptomatic treatment is best that we can do at this time. 09/16/2016. MRI has demonstrated a mass in the muscles of the medial part of the thigh. With the enhancements on that something this is to me more suggestive of neoplastic process. Do not feel like to represent an abscess or hematoma at this time. Have consulted orthopedics to get their opinion on what can or cannot be done. Patient's daughter is a nurse practitioner in [place] and there is some discussion that she may want to be transferred up there so that the daughter and can be closer to her at this time. Current Visit: Yes Qualifiers: Laterality: right Qualified Code(s): M79.604 - Pain in right leg Subjective Patient reports: Present: no new complaints, still having pain, tolerating a regular diet, bowel movement, afebrile Exam - Constitutional Vitals: Period Temp Pulse Resp BP Sys/Oropeza Pulse Ox Last 24 Hr 99.1 F-100.3 F 87-98 16-20 153-180/95-102 95-98 General appearance: mild distress - Head Head exam: Present: normal inspection - ENT ENT exam: Present: normal exam - Neck Neck exam: Present: normal inspection - Respiratory Respiratory exam: Present: clear to auscultation bilaterally, rales - Cardiovascular Cardiovascular exam: Present: RRR - GI/Abdominal GI/Abdominal exam: Present: normal bowel sounds, soft - Extremities Exam Extremities exam: Present: other (Still with tenderness in the right medial thigh area and some mild swelling) - Back Exam Back exam: Present: normal inspection - Neurological Exam Neurological exam: Present: alert, oriented X3, CN II-XII intact - Skin Skin exam: Present: normal color, warm, dry Results - Labs CBC & BMP: 09/16/16 05:41 09/16/16 05:41 Lab Results: I have reviewed the past 24 hour labs - Diagnostic Findings Procedure: MRI: report reviewed by me, image reviewed by me (Mass in the medial thigh muscle)
[2016-09-16] MEDS: hydroCHLOROthiazide 12.5 MG CAPSULE PO SCH (09:29)
[2016-09-16] MEDS: amLODIPine 5 MG TABLET PO SCH (09:30)
[2016-09-16] MEDS: PANTOPRAZOLE 40 MG TABLET PO SCH (09:30)
[2016-09-16] MEDS: CARVEDILOL 3.125 MG TABLET PO SCH (09:30)
[2016-09-16] MEDS: ENOXAPARIN 40 MG/0.4 ML SYRINGE SUBCUT SCH (09:31)
[2016-09-16] MEDS: INSULIN LISPRO 100 UNIT/ML SUBCUT SCH ×4 (09:57→20:56)
[2016-09-16] MEDS: CEFTAROLINE 400 MG in SODIUM CHLORIDE 0.9% 100 ML IV SCH ×2 (10:14→20:55)
[2016-09-16] MEDS ORDERED: INSULIN GLARGINE 100 UNIT/ML SUBCUT SCH (10:20)
--- NOTE | 2016-09-16 10:38 | Orthopedic Consult Note ---
History of Present Illness Chief complaint: Right thigh mass History of present illness: Ms. Joshi is a 51 year old female admitted to the hospitalist service with approximately 3 week history of pain in her right thigh she she has been ambulatory until recently when the pain got severe which prompted recent medical admission there is no remote history of trauma she has fallen recently due to pain or workup at this point has included x-rays which were negative for fracture they were at an outside facility as well as CT and MRI here at [facility] 's interpretation is that she has a sizable soft tissue mass in the anterior thigh consistent with a neoplasm possible sarcoma Exam.. Well-nourished black female she is awake alert has complaints of right thigh pain only. She guarded with any attempted range of motion about the right leg there is no erythema or fluctuance about the thigh no effusion of the right knee and no pain distally with palpation of the tib-fib or ankle she will tolerate some gentle internal/external rotation about the right hip and there is no pain with palpation proximally. There is some fullness and firmness in the anterior thigh consistent with a soft tissue mass. X-ray, MRI revealing a soft tissue mass consistent with a neoplasm in the anterior thigh Impression: soft tissue mass right anterior thigh Plan: I discussed with her and family present the preliminary diagnosis and the need to consider biopsy. I recommended that consultation be made to the [facility] where Dr. Sun is an orthopedic oncologist. I would recommend that the biopsy be performed under her guidance. May determine limb salvage versus amputation options. I will be available if any other questions. Thank you for the consultation Home Medications Medication Instructions Recorded Confirmed Type Insulin Glargine,Hum.rec.anlog 10 unit SUBCUT BEDTIME 09/12/16 09/13/16 History [Lantus SoloStar] Lisinopril [Zestril] 20 mg PO DAILY 09/12/16 09/13/16 History Allergies Allergy/AdvReac Type Severity Reaction Status Date / Time Penicillins Allergy Intermediate ITCHING Verified 09/13/16 05:11 Medical,Surgical,& Family Hx - Medical History Cardio: History of: Hypertension Endocrine: History of: Diabetes Mellitus (NIDDM) - Surgical History Abdominal Surgeries: Surgical HX of: Cholecystectomy Reproductive Surgeries: Surgical HX of;: Section (x1) - Social History Smoking Status: Never smoker Frequency of Alcohol Use: None Type of Drug Use: None Exam - Constitutional Vitals: Period Temp Pulse Resp BP Sys/Oropeza Pulse Ox Last 24 Hr 99.1 F-100.3 F 87-98 16-20 153-180/95-102 95-98 Results - Labs CBC & BMP: 09/16/16 05:41 09/16/16 05:41
--- NOTE | 2016-09-16 13:56 | Hospitalist Progress Note ---
Assessment and Plan (1) NARINDER (acute kidney injury) Status: Acute Current Visit: Yes (2) Edema Status: Acute Current Visit: Yes (3) Diabetes mellitus Status: Chronic Current Visit: Yes (4) Anemia Status: Acute Current Visit: Yes Hospitalist: Subjective Interval history: MRI consistent with anterior thigh mass, concerning for neoplasm. Evaluated by orthopedics, recommend evaluation by oncology ortho, Dr. Sun at [facility]. An appointment has been made for next week. Attempting to control DM and HTN. Has been difficult, most likely due to pain. Increasing carvedilol today. Increasing amlodipine tomorrow. Increasing Lantus. Work on pain control. Consulting physical therapy for assistance with what type of ambulation equipment patient needs. Possible discharge tomorrow. Exam - Constitutional Vitals: Period Temp Pulse Resp BP Sys/Oropeza Pulse Ox Last 24 Hr 99.1 F-100.3 F 87-90 16-20 153-180/95-102 95-98 General appearance: normal weight - Head Head exam: Present: normocephalic, atraumatic - Eye Eye exam: Present: EOMI Pupils: Present: ANAYELI - ENT ENT exam: Present: normal exam - Neck Neck exam: Present: normal inspection - Respiratory Respiratory exam: Present: clear to auscultation bilaterally. Absent: rhonchi, wheezes - Cardiovascular Cardiovascular exam: Present: regular rate and rhythm - GI/Abdominal GI/Abdominal exam: Present: normal bowel sounds, soft. Absent: tenderness, rebound - Extremities Exam Extremities exam: Present: normal inspection - Back Exam Back exam: Present: normal inspection - Neurological Exam Neurological exam: Present: alert, oriented X3 - Psychiatric Psychiatric exam: Present: normal affect, normal mood - Skin Skin exam: Present: warm, intact Results - Labs CBC & BMP: 09/16/16 05:41 09/16/16 05:41
[2016-09-16] MEDS ORDERED: fentaNYL 25 MCG/HR PATCH TRANSDERM SCH (16:00)
[2016-09-16] MEDS: SODIUM CHLORIDE 0.9% 1,000 ML IV SCH (16:34)
[2016-09-16] MEDS: CARVEDILOL 6.25 MG TABLET PO SCH (20:55)
[2016-09-17] MEDS: SODIUM CHLORIDE 0.9% 1,000 ML IV SCH ×2 (02:34→13:17)
[2016-09-17 07:11] LABS: Risk Ratio 2.68; VLDL CHOLESTEROL 12.2 MG/DL
[2016-09-17] MEDS: hydroCHLOROthiazide 12.5 MG CAPSULE PO SCH (09:02)
[2016-09-17] MEDS: amLODIPine 10 MG TABLET PO SCH (09:02)
[2016-09-17] MEDS: POLYETHYLENE GLYCOL POWDER 17 GM PACK PO SCH (09:02)
[2016-09-17] MEDS: ENOXAPARIN 40 MG/0.4 ML SYRINGE SUBCUT SCH (09:02)
[2016-09-17] MEDS: PANTOPRAZOLE 40 MG TABLET PO SCH (09:02)
[2016-09-17] MEDS: INSULIN LISPRO 100 UNIT/ML SUBCUT SCH ×4 (09:02→22:06)
[2016-09-17] MEDS: CARVEDILOL 6.25 MG TABLET PO SCH ×2 (09:02→22:06)
[2016-09-17] MEDS: INSULIN GLARGINE 100 UNIT/ML SUBCUT SCH (09:03)
--- NOTE | 2016-09-17 10:47 | Hospitalist Progress Note ---
Assessment and Plan (1) NARINDER (acute kidney injury) Status: Acute Assessment and plan: Unknown baseline. Creatinine has remained around 1.5 since admission. Given her uncontrolled htn and dm very possible that she has CKD. Current Visit: Yes (2) Edema Status: Acute Assessment and plan: RLE edema MRI with mass concerning for neoplasm Evaluated by general surgery and orthopedics Will discharge, with follow-up with Dr. Sun at [facility] next week. Current Visit: Yes (3) Diabetes mellitus Status: Chronic Assessment and plan: Increasing Lantus Current Visit: Yes (4) Anemia Status: Acute Assessment and plan: Has remained stable Current Visit: Yes Hospitalist: Subjective Interval history: Patient is in pain but does not ask for pain medication due to not wanting to get constipated. Started her on a fentanyl patch and daily miralax last night. Blood pressure slightly improved. Amlodipine increased today. Lantus increased last night. Continue titration. She has an appointment scheduled with orthopedic oncology at [facility] next week. Physical therapy is working with her. Will need a walker at discharge. She should be able to go home tomorrow. Exam - Constitutional Vitals: Period Temp Pulse Resp BP Sys/Oropeza Pulse Ox Last 24 Hr 98.3 F-99.5 F 73-92 18-20 152-163/91-100 94-98 General appearance: normal weight - Head Head exam: Present: normocephalic, atraumatic - Eye Eye exam: Present: EOMI Pupils: Present: ANAYELI - ENT ENT exam: Present: normal exam - Neck Neck exam: Present: normal inspection - Respiratory Respiratory exam: Present: clear to auscultation bilaterally. Absent: rhonchi, wheezes - Cardiovascular Cardiovascular exam: Present: regular rate and rhythm - GI/Abdominal GI/Abdominal exam: Present: normal bowel sounds, soft. Absent: tenderness, rebound - Extremities Exam Extremities exam: Present: edema - Back Exam Back exam: Present: normal inspection - Neurological Exam Neurological exam: Present: alert, oriented X3 - Psychiatric Psychiatric exam: Present: normal affect, normal mood - Skin Skin exam: Present: warm, intact Results - Labs CBC & BMP: 09/16/16 05:41 09/16/16 05:41
[2016-09-18] MEDS: SODIUM CHLORIDE 0.9% 1,000 ML IV SCH ×2 (01:05→12:31)
[2016-09-18 03:55] LABS: Basophils % 0.3 % (0.0-0.8); Eosinophils # 0.1 10*3/uL (0.0-0.87); Eosinophils % 1.3 % (0.00-10.9); Hematocrit 27.8 VOL% (35.7-47.0); Immature Granulocytes % 0.4 %; Immature Granulocytes Absolute 0.03 #; Lymphocytes # 0.9 10*3/uL (1.4-4.0); Lymphocytes % 12.8 % (21.3-54.2); Mean Corpuscular HGB Conc 32.4 GM/DL (32-36); Mean Corpuscular Hemoglobin 28 PG (27-34); Mean Corpuscular Volume 86.9 FL (87-102); Mean Platelet Volume 11.2 FL (9.6-12.0); Monocytes # 0.9 10*3/uL (0.11-0.8); Monocytes % 13.4 % (1.7-12.7); Neutrophils % 71.8 % (38.7-73.9); Platelet Count 303 T/CUMM (130-400); Red Cell Distribution Width 13.2 % (9.3-17.3)
[2016-09-18 04:43] LABS: Calcium 8.3 MG/DL (8.5-10.1); Magnesium 2.1 MG/DL (1.8-2.4); Osmolality,Calculated 285.3 MOS/KG (273-304); Potassium 4.1 MMOL/L (3.5-5.1)
--- NOTE | 2016-09-18 08:29 | Discharge Summary ---
<Eda Kovacs - Last Filed: 09/18/16 09:46> Hospital Course - Hospital Course Hospital Course: This is a 51 year old female that presented to [facility] on 09/12 as a lateral transfer from [facility] for further evaluation of right lower extremities swelling and pain. The patient has a medical history of hypertension and diabetes mellitus. At the time of presentation, she reported painful swelling in her right lower extremities for about 2 weeks. The reported that the pain originated in the upper medial thigh and extended downward essentially effecting the entire right leg. She was evaluated at a local clinic in [place] and was given analgesics; however her right leg pain failed to improve. The pain became progressively worse which prompted her to present to [facility] for further evaluation. At [place], she was evaluated. There was concern for possible deep vein thrombosis because of the location and severity of pain in her right leg. She was then transferred to [facility] for continuation of care. In the ED here, bilateral venous dopplers were performed which were negative for deep vein thrombosis; however suggested a possible mass versus hematoma in the right thigh. At that time, CT angiography of the lower extremities were ordered which noted no evidence of vascular disease or vascular occlusion. In addition , she was also noted to have some diffuse edema to the right thigh, calf, and lower leg with subcutaneous fat stranding which was consistent with cellulitis. She was admitted under the hospitalist services for continuation of care. At the time of admission, a surgical and orthopedic consult was requested. Her blood pressures and glucose levels were increased at the time of admission. She was treated and her levels have normalized. She was seen and evaluated by Dr. Davey. It was concluded that a surgical intervention was not appropriate at this time; however an MRI and orthopedic consult was necessary for in-depth evaluation. On 09/15 MRI of the lower extremity was performed which revealed is that she has a sizable soft tissue mass in the anterior thigh consistent with a neoplasm possible sarcoma. Findings were discussed with the patient. She was then advised that she should consider biopsy. It was recommended that consultation be made to [facility] to Dr. Sun, orthopedic oncologist for further evaluation. Her condition in stable. Her pain is well managed. Today, we feel that she is appropriate for discharge to follow-up with her PCP and Dr. Sun as directed. - Time spent with patient Time with patient DS: Greater than 30 minutes Discharge Plan - Discharge Data Disposition: Disch To Home/Self Care - Discharge Medications New Carvedilol [Coreg] 6.25 mg PO BID tablet Continue Insulin Glargine,Hum.rec.anlog [Lantus SoloStar] 10 unit SUBCUT BEDTIME HYDROcodone/ACETAMIN 7.5-325 [[place]wick 7.5-325] 1 tablet PO Q4H PRN #14 tablet PRN Reason: Pain Moderate (4-7) Lisinopril [Zestril] 20 mg PO DAILY amLODIPine [Norvasc] 10 mg PO DAILY #30 tablet hydroCHLOROthiazide [Hydrochlorothiazide] 25 mg PO DAILY #30 capsule - Follow Up or Referral - Forms/Instructions Exam - Constitutional Vitals: Period Temp Pulse Resp BP Sys/Oropeza Pulse Ox Last 24 Hr 98 F-99.2 F 75-88 17-20 136-149/59-96 96-98 Discharge Results Procedures and tests throughout hospitalization: Pending Orders 09/14/16 06:35 Blood Culture IN AM Labs on day of discharge: Labs from last 24 hours 09/18/16 09/18/16 09/18/16 07:21 03:45 03:44 WBC 7.0 RBC 3.20 L Hgb 9.0 L Hct 27.8 L MCV 86.9 L MCH 28 MCHC 32.4 RDW 13.2 Plt Count 303 MPV 11.2 Neut % (Auto) 71.8 Lymph % (Auto) 12.8 L Bartholomew % (Auto) 13.4 H Eos % (Auto) 1.3 Baso % (Auto) 0.3 Neut # (Auto) 5.0 Lymph # (Auto) 0.9 L Bartholomew # (Auto) 0.9 H Eos # (Auto) 0.1 Baso # (Auto) 0.0 Immature Gran % 0.4 Nucleated RBC % 0.0 Immature Gran # 0.03 Nucleated RBCs # 0.00 Sodium 141 Potassium 4.1 Chloride 105 Carbon Dioxide 27 Anion Gap 13.1 BUN 15 Creatinine 1.60 H GFR Calculation 47 BUN/Creatinine Ratio 9.00 Glucose 176 H POC Glucose 220 H Calculated Osmolality 285.3 Calcium 8.3 L Magnesium 2.1 09/17/16 09/17/16 09/17/16 19:51 15:47 11:56 WBC RBC Hgb Hct MCV MCH MCHC RDW Plt Count MPV Neut % (Auto) Lymph % (Auto) Bartholomew % (Auto) Eos % (Auto) Baso % (Auto) Neut # (Auto) Lymph # (Auto) Bartholomew # (Auto) Eos # (Auto) Baso # (Auto) Immature Gran % Nucleated RBC % Immature Gran # Nucleated RBCs # Sodium Potassium Chloride Carbon Dioxide Anion Gap BUN Creatinine GFR Calculation BUN/Creatinine Ratio Glucose POC Glucose 268 H 231 H 214 H Calculated Osmolality Calcium Magnesium Preliminary micro results at discharge 09/14/16 06:35 Blood Culture - Preliminary Blood No growth at 3 days 09/14/16 06:35 Blood Culture - Preliminary Blood No growth at 3 days DS: Provider Date of admission: 09/13/16 03:49 Primary care physician: . No PCP Attending physician on admission: Estee Harden MD Consults: 09/13/16 04:28 Consult to Pharmacy [CONS] Routine Reason for Pharmacy Consult: Adjust Meds Renal Funct 09/14/16 11:00 Consult to Pharmacy [CONS] Routine Reason for Pharmacy Consult: Dose/Manage Vancomycin 09/14/16 11:01 Consult to Physician [CONS] Routine Comment: RLE mass vs hematoma Consulting Provider: Kaiden Davey Person Notified: DR. DAVEY Date Notified: 09/14/16 Time Notified: 16:47 09/14/16 18:56 Consult to Physician [CONS] Routine Comment: Consulting Provider: Consult to Specialist Group: Orthopedic When should Consulting Provider be notified: In am Consult Notification Comment: Patient with right thigh pain and questionable area on CT and the soft tissue muscle. Etiology unclear please evaluate 09/16/16 07:34 Consult to Physician [CONS] Routine Comment: Consulting Provider: Jerad Begum Jr. When should Consulting Provider be notified: Now Person Notified: YONATHAN Date Notified: 09/16/16 Time Notified: 08:15 Consult Notification Comment: Pt with right thigh mass, possible sarcoma 09/16/16 12:47 Consult to Case Mgmt/Social Srvs [CONS] Routine Reason for Case Mgmt/Social Srvs: Equipment 09/16/16 13:08 Consult to Physical Therapy [CONS] Routine Reason for Physical Therapy: Ambulation Consult Comment: will most require some type of equipment for walking assistance 09/16/16 15:37 Consult to [facility], Educator [CONS] Routine Reason for Multi Operation Forming Machine Setter: Diabetes Education Diet 09/17/16 11:01 Consult to Physical Therapy [CONS] Routine Reason for Physical Therapy: Ambulation Consult Comment: Will need walker for home use 09/17/16 15:07 Consult to Case Mgmt/Social Srvs [CONS] Routine Reason for Case Mgmt/Social Srvs: Equipment Consult Comment: rollator walker for discharge Discharging clinician: Eda Kovacs CNP <Bandar Lacy - Last Filed: 09/18/16 10:31> Hospital Course - Hospital Course Hospital Course: Shared visit with [employer] Patient who was admitted and [facility],then cellulitis and eventually found to have a soft tissue mass suspicious for a sarcoma. She is being discharged to follow up at [facility] for further management. Above DC summary reviewed by me. - Time spent with patient Time with patient DS: Greater than 30 minutes (documentation and post hospital care planning) Discharge Plan - Discharge Data Condition at Discharge: Stable - Forms/Instructions Additional Discharge Instructions: Follow up at [facility] for further management
[2016-09-18] MEDS: CARVEDILOL 6.25 MG TABLET PO SCH (09:20)
[2016-09-18] MEDS: hydroCHLOROthiazide 12.5 MG CAPSULE PO SCH (09:20)
[2016-09-18] MEDS: amLODIPine 10 MG TABLET PO SCH (09:20)
[2016-09-18] MEDS: PANTOPRAZOLE 40 MG TABLET PO SCH (09:20)
[2016-09-18] MEDS: ENOXAPARIN 40 MG/0.4 ML SYRINGE SUBCUT SCH (09:21)
[2016-09-18] MEDS: POLYETHYLENE GLYCOL POWDER 17 GM PACK PO SCH (09:21)
[2016-09-18] MEDS: INSULIN LISPRO 100 UNIT/ML SUBCUT SCH ×3 (09:21→15:55)
[2016-09-18] MEDS: INSULIN GLARGINE 100 UNIT/ML SUBCUT SCH (09:21)
--- NOTE | 2016-09-18 10:25 | General Surgery Progress Note ---
Assessment and Plan - Time spent with patient Time spent with patient: Less than 30 minutes (1) Thigh pain, musculoskeletal Status: Acute Assessment and plan: Impression: 1. Right thigh pain and swelling etiology unclear 2. Questionable mass in the muscle on the medial thigh etiology unclear 3. Diabetic adult onset Plan: 1. We will get orthopedics to look at this and review for him to see what they think might be going on. 2. Will get an MRI to see if we get a little better definition of what might be going on the muscular to her. 3. Symptomatic treatment is best that we can do at this time. 09/16/2016. MRI has demonstrated a mass in the muscles of the medial part of the thigh. With the enhancements on that something this is to me more suggestive of neoplastic process. Do not feel like to represent an abscess or hematoma at this time. Have consulted orthopedics to get their opinion on what can or cannot be done. Patient's daughter is a nurse practitioner in [place] and there is some discussion that she may want to be transferred up there so that the daughter and can be closer to her at this time. 09/18/2016. Patient is stable but emotional at this time. She remains a little tender in the right thigh area. So far everything is stable and she is set up to see a orthopedic oncologist next week in [place]. She is scheduled to go home at this time. Current Visit: Yes Qualifiers: Qualified Code(s): M79.604 - Pain in right leg Subjective Patient reports: Present: feels better, still having pain, pain is less, tolerating a regular diet, afebrile Exam - Constitutional Vitals: Period Temp Pulse Resp BP Sys/Oropeza Pulse Ox Last 24 Hr 98 F-99.2 F 75-88 17-20 136-149/59-96 96-98 General appearance: mild distress - Head Head exam: Present: normal inspection - ENT ENT exam: Present: normal exam - Neck Neck exam: Present: normal inspection - Respiratory Respiratory exam: Present: clear to auscultation bilaterally - Cardiovascular Cardiovascular exam: Present: RRR - GI/Abdominal GI/Abdominal exam: Present: normal bowel sounds, soft - Extremities Exam Extremities exam: Present: other (No distal swelling or edema. Right thigh remains slightly swollen and remains tender to touch.) - Back Exam Back exam: Present: normal inspection - Neurological Exam Neurological exam: Present: alert, oriented X3, CN II-XII intact - Skin Skin exam: Present: normal color, warm, dry Results - Labs CBC & BMP: 09/18/16 03:44 09/18/16 03:45 Lab Results: I have reviewed the past 24 hour labs
[2016-09-18 16:42] VITALS: BP 146/96
== END 2016-09-18 17:42 | disposition home or self-care (01) | DRG 343 ==
LOC: N.ED 20:09 → SUATTDRO 09-13 03:49 → N.EDINP 09-13 03:49 → N.2E 09-13 04:23
PROVIDERS: ADMIT Internal Medicine; ATTEND Internal Medicine